=== PATIENT | male | born 1935 | race Caucasian/White ===

== ENCOUNTER 2017-06-01 14:45 | Emergency (ER) | payer MEDICARE, BC ==
--- NOTE | 2017-06-01 15:18 | ED Physician Documentation ---
PD HPI LOWER EXT INJURY - Stated complaint Stated Complaint: RT FOOT SWOLLEN - Chief complaint Chief Complaint: Ext Problem - History obtained from History obtained from: Patient, Family (spouse) - History of Present Illness PD HPI LOW EXT INJURY LOCATION: Right, Foot Type of injury: Fall Where injury occurred: Home Timing - onset: How many days ago (3) Worsened by: Other (weight bearing) Associated symptoms: Swelling - Additional information Additional information: The patient is a pleasant 81-year-old male who presents with pain and swelling of his right foot. 3 days ago he hooked his toes on carpeting causing his foot to hyperextend and then he fell. He has been ambulatory since the incident occurred, but presents with pain and swelling that is worse with weightbearing. He reports history of frequent falling under similar circumstances. His states that he walks with a shuffling gait, and slaps his feet on the floor when walking. He has a history of atrial fibrillation, and was taken off of warfarin because of frequent falling. Review of Systems Constitutional: denies: Fever Nose: denies: Congestion Throat: denies: Sore throat Cardiac: denies: Chest pain / pressure Respiratory: denies: Dyspnea, Cough GI: denies: Abdominal Pain, Nausea, Vomiting : denies: Dysuria Skin: denies: Rash Musculoskeletal: reports: Extremity pain (right foot). denies: Neck pain, Back pain Neurologic: denies: Focal weakness, Numbness, Headache, Head injury, LOC PD PAST MEDICAL HISTORY - Past Medical History Cardiovascular: Atrial fibrillation - Present Medications Home Medications: Ambulatory Orders Medication Instructions Recorded Confirmed ALPRAZolam [Alprazolam] 0.5 mg PO DAILY 06/01/17 06/01/17 Cimetidine 400 mg PO DAILY 06/01/17 06/01/17 Colchicine [Colcrys] 0.06 mg PO BID 06/01/17 06/01/17 Digoxin 0.125 mg PO DAILY 06/01/17 06/01/17 Metoprolol Tartrate 25 mg PO BID 06/01/17 06/01/17 Triamterene/Hydrochlorothiazid 1 tab PO DAILY 06/01/17 06/01/17 [Triamterene-Hctz 37.5-25 mg Cp] - Allergies Allergies/Adverse Reactions: Allergies Allergy/AdvReac Type Severity Reaction Status Date / Time No Known Drug Allergies Allergy Verified 06/01/17 15:41 PD ED PE NORMAL - Vitals Vital signs reviewed: Yes (hypertensive) - General General: Alert and oriented X 3, Well developed/nourished - HEENT HEENT: Atraumatic, EOMI - Neck Neck: No bony TTP - Cardiac Cardiac: RRR, No murmur - Respiratory Respiratory: No respiratory distress, Clear bilaterally - Abdomen Abdomen: Soft, Non tender - Back Back: No CVA TTP - Derm Derm: No rash - Extremities Extremities: No calf tenderness / cord, Other (Swelling right foot, with tenderness to palpation medial midfoot. Distal neurovascular is intact.) - Neuro Neuro: Alert and oriented X 3, No motor deficit, Other (Slight tremor.) Results - Vitals Vitals: Oxygen O2 Source Room air - Rads (name of study) Right foot Radiology: Prelim report reviewed, EMP read contemporaneously, See rad report ( No fracture or subluxation.) PD MEDICAL DECISION MAKING - ED course Complexity details: reviewed results, re-evaluated patient, considered differential, d/w patient, d/w family ED course: The patient's presentation is significant for contusion/sprain of right foot caused by hyperextension injury with subsequent falling. There is no evidence of fracture or dislocation on x-ray examination. I discussed with him and his the results of the imaging study, symptomatic treatment and outpatient follow-up, as well as potentially worrisome signs or symptoms that should prompt reevaluation in the emergency department. I discussed with them the possibility of early parkinsonism, given the patient's shuffling gait, and I recommended he use a cane to help steady himself when ambulating. Departure - Departure Disposition: 01 Home, Self Care Clinical Impression: Contusion of right foot Qualifiers: Encounter type: initial encounter Qualified Code(s): S90.31XA - Contusion of right foot, initial encounter Condition: Stable Instructions: ED Contusion Foot Follow-Up: Michelle Hilliard MD [Primary Care Provider] - Comments: Keep your right foot elevated as much of the time as possible. You can use Tylenol if needed for discomfort. Follow up with your primary physician within 2 weeks. Call to schedule appointment. Return to the emergency department if you develop increasing swelling, increasing pain, or otherwise worsening symptoms. Discharge Date/Time: 06/01/17 16:45
--- NOTE | 2017-06-01 15:46 | XRAY Report ---
EXAM: RIGHT FOOT RADIOGRAPHY EXAM DATE: 06/01/2017 03:28 PM. CLINICAL HISTORY: Right foot pain and swelling after falling. COMPARISON: None. TECHNIQUE: 3 views. FINDINGS: Bones: No acute fracture or bony destruction. There is sclerosis of the fifth proximal phalanx. Joints: Joint space and alignment appear satisfactory. Soft Tissues: Normal. No soft tissue swelling. IMPRESSION: No fracture or subluxation. [facility] Referring Provider Line: [phone] SITE ID: [id number]
[2017-06-01 16:46] VITALS: BP 146/90
== END 2017-06-01 16:45 | disposition home or self-care (01) ==
LOC: ED 14:45
DX: S90.31XA Contusion of right foot, initial encounter (principal); W18.30XA Fall on same level, unspecified, initial encounter; Z91.81 History of falling; Y92.009 Unspecified place in unspecified non-institutional (private) residence as the place of occurrence of the external cause
CPT/HCPCS: 99283

== ENCOUNTER 2017-07-03 14:12 | Emergency (ER) | payer MEDICARE, BC ==
--- NOTE | 2017-07-03 15:20 | ED Physician Documentation ---
PD HPI LOWER EXT INJURY - Stated complaint Stated Complaint: LEG SWELLING - Chief complaint Chief Complaint: Ext Problem - History obtained from History obtained from: Patient - History of Present Illness PD HPI LOW EXT INJURY LOCATION: Right, Ankle Type of injury: Fall, Twist Timing - onset: How many months ago (he fell a month ago and had swelling and bruising of both ankle,s more to the left. These have improved. Now with several days to a week of right ankle redness, swelling, and pain.) Timing - details: Gradual onset, Still present Worsened by: Moving, Palpating Associated symptoms: Swelling. No: Weakness, Numbness Similar symptoms before: Has not had sx before Recently seen: Clinic (Rx with Colchicine by PMD but not improving the past couple days.) Review of Systems Constitutional: denies: Fever, Chills Cardiac: denies: Chest pain / pressure, Palpitations Respiratory: denies: Dyspnea, Cough GI: denies: Nausea, Vomiting Skin: denies: Rash, Lesions Neurologic: denies: Focal weakness, Numbness PD PAST MEDICAL HISTORY - Past Medical History Past Medical History: Yes Cardiovascular: Atrial fibrillation GI: GERD Musculoskeletal: Gout - Past Surgical History Past Surgical History: No - Present Medications Home Medications: Ambulatory Orders Medication Instructions Recorded Confirmed ALPRAZolam [Alprazolam] 0.5 mg PO DAILY 06/01/17 06/01/17 Cimetidine 400 mg PO DAILY 06/01/17 06/01/17 Colchicine [Colcrys] 0.06 mg PO BID 06/01/17 06/01/17 Digoxin 0.125 mg PO DAILY 06/01/17 06/01/17 Metoprolol Tartrate 25 mg PO BID 06/01/17 06/01/17 Triamterene/Hydrochlorothiazid 1 tab PO DAILY 06/01/17 06/01/17 [Triamterene-Hctz 37.5-25 mg Cp] Dexamethasone [Decadron] 4 mg PO DAILY #5 tablet 07/03/17 HYDROcod/ACETAM 5/325 [[place] 5/325] 1 tab PO Q6H PRN #15 tablet 07/03/17 Naproxen [Naprosyn] 500 mg PO BID PRN #20 tablet 07/03/17 - Allergies Allergies/Adverse Reactions: Allergies Allergy/AdvReac Type Severity Reaction Status Date / Time No Known Drug Allergies Allergy Verified 07/03/17 14:21 - Social History Does the pt smoke?: No Smoking Status: Never smoker Does the pt drink ETOH?: No Does the pt have substance abuse?: No - Immunizations Immunizations are current?: Yes - POLST Patient has POLST: No PD ED PE NORMAL - Vitals Vital signs reviewed: Yes - General General: Alert and oriented X 3, Well developed/nourished - Neck Neck: Supple, no meningeal sign, No adenopathy - Cardiac Cardiac: RRR, No murmur - Respiratory Respiratory: Clear bilaterally - Abdomen Abdomen: Soft, Non tender - Back Back: No CVA TTP - Derm Derm: Normal color, Warm and dry - Extremities Extremities: No deformity, Other (right ankle with swelling and effusion. Some redness and tender anteroloateral. ) - Neuro Neuro: Alert and oriented X 3, No motor deficit, No sensory deficit Results - Vitals Vitals: Oxygen O2 Source Room air - Labs Labs: Microbiology 07/03/17 16:42 Body Fluid Culture - Preliminary Synovial Fluid CULTURE IN PROGRESS. RESULTS TO FOLLOW. Laboratory Tests 07/03/17 07/03/17 07/03/17 16:42 16:42 16:51 WBC 11.8 H RBC 5.18 Hgb 14.4 Hct 43.7 MCV 84.3 MCH 27.7 MCHC 32.9 RDW 14.4 Plt Count 221 MPV 8.0 Neut # 7.3 H Lymph # 2.3 [place] # 1.7 H Eos # 0.3 Baso # 0.1 Absolute Nucleated RBC 0.01 Band Neuts % (Manual) Not Reportable Abnorm Lymph % (Manual) Not Reportable Nucleated RBC % 0.1 Neutrophils # (Manual) Not Reportable Lymphocytes # (Manual) Not Reportable Monocytes # (Manual) Not Reportable Eosinophils # (Manual) Not Reportable Basophils # (Manual) Not Reportable Differential Comment MANUAL=AUTO DIFF Manual Slide Review Indicated Platelet Estimate NORMAL (130-450,000) Platelet Morphology NORMAL APPEARANCE RBC Morph Micro Appear NORMAL APPEARANCE ESR Sodium Potassium Chloride Carbon Dioxide Anion Gap BUN Creatinine Estimated GFR (MDRD) Glucose Uric Acid Calcium Total Bilirubin AST ALT Alkaline Phosphatase Total Protein Albumin Globulin Albumin/Globulin Ratio Lipase Fluid Source SYNOVIAL Fluid Color BLOODY Fluid Clarity CLOUDY Fluid WBC Fluid RBC Fluid Neutrophils % 91.0 Fluid Lymphocytes % 9.0 Fld Mesothelial Cell % Not Reportable Fluid Crystals NONE SEEN 07/03/17 07/03/17 16:51 16:51 WBC RBC Hgb Hct MCV MCH MCHC RDW Plt Count MPV Neut # Lymph # [place] # Eos # Baso # Absolute Nucleated RBC Band Neuts % (Manual) Abnorm Lymph % (Manual) Nucleated RBC % Neutrophils # (Manual) Lymphocytes # (Manual) Monocytes # (Manual) Eosinophils # (Manual) Basophils # (Manual) Differential Comment Manual Slide Review Platelet Estimate Platelet Morphology RBC Morph Micro Appear ESR 11 Sodium 134 L Potassium 3.6 Chloride 96 L Carbon Dioxide 24 Anion Gap 14.0 H BUN 28 H Creatinine 1.4 H Estimated GFR (MDRD) 49 L Glucose 106 H Uric Acid 8.0 H Calcium 9.4 Total Bilirubin 0.8 AST 24 ALT 26 Alkaline Phosphatase 72 Total Protein 8.1 Albumin 4.1 Globulin 4.0 Albumin/Globulin Ratio 1.0 Lipase 23 Fluid Source Fluid Color Fluid Clarity Fluid WBC Fluid RBC Fluid Neutrophils % Fluid Lymphocytes % Fld Mesothelial Cell % Fluid Crystals Procedures - Arthrocentesis Joint: Ankle, Right Preparation: Consent obtained (verbal), Sterile prep and drape Anesthesia: Lidocaine 1% Fluid: Bloody, Sent for cell count, Cloudy, Sent for crystals, Sent for culture , Fluid obtained - cc (3) PD MEDICAL DECISION MAKING - ED course Complexity details: reviewed results, considered differential (consider DVT, gout, reactive arthritis, sprain. ), d/w patient Departure - Departure Disposition: 01 Home, Self Care Clinical Impression: Acute ankle pain Qualifiers: Laterality: right Qualified Code(s): M25.571 - Pain in right ankle and joints of right foot Clinical Impression: (Ruled Out): Deep vein thrombosis Condition: Stable Record reviewed to determine appropriate education?: Yes Instructions: ED Sprain Ankle Follow-Up: Michelle Hilliard MD [Primary Care Provider] - Prescriptions: Dexamethasone [Decadron] 4 mg PO DAILY #5 tablet HYDROcod/ACETAM 5/325 [[place] 5/325] 1 tab PO Q6H PRN #15 tablet PRN Reason: Pain Naproxen [Naprosyn] 500 mg PO BID PRN #20 tablet PRN Reason: Pain Comments: The ultrasound shows good blood flow back without any signs of clot. There were no crystals seen on the initial fluid exam from the ankle so it does not appear to be gout. Presume some ankle arthritis or ligament injuries. Use Decadron daily for 5 more days and naproxen twice daily for the next 5-7 days. Add Tylenol or hydrocodone if needed for pain. Use the [place] wrap and ankle brace when up and around for the next week. Call your local [facility] family doctor for follow-up appointment for about 4-5 days from now. Return sooner if worsening. We did do a culture result of the fluid from the ankle and that will result in a few days though it does not appear like an infection right now. Discharge Date/Time: 07/03/17 18:49
[2017-07-03] MEDS ORDERED: NAPROXEN 250 MG TABLET PO STA (15:47)
[2017-07-03] MEDS ORDERED: traMADol 50 MG TABLET PO STA (15:47)
--- NOTE | 2017-07-03 16:37 | XRAY Report ---
EXAM: RIGHT FOOT RADIOGRAPHY EXAM DATE: 07/03/2017 03:52 PM. CLINICAL HISTORY: Right lateral ankle/foot swelling and pain after fall and injury. COMPARISON: 06/01/2017. TECHNIQUE: 3 views. FINDINGS: Bones: Normal. No fractures or bone lesions. Joints: Normal. No subluxations. Soft Tissues: Normal. No significant soft tissue swelling. IMPRESSION: No fracture or malalignment. [facility] Referring Provider Line: [phone] SITE ID: [id number]
--- NOTE | 2017-07-03 16:53 | Ultrasound Report ---
EXAM: RIGHT LOWER EXTREMITY VENOUS ULTRASOUND EXAM DATE: 07/03/2017 04:30 PM. CLINICAL HISTORY: Right ankle/lower leg swelling after recent injury. COMPARISON: Foot films today. TECHNIQUE: Real-time sonographic vascular imaging was performed by the re etcher through the lower extremity utilizing both color-flow and Doppler spectral analysis. Multiple accounting representative static abraham ges were saved for review. FINDINGS: Common Femoral Vein (CFV): Normal. CFV-GSV Junction: Normal. Profunda Femoral Vein (PFV): Normal. Femoral Vein (FV) Prox: Normal. Femoral Vein (FV) Mid: Normal. Femoral Vein (FV) Dist: Normal. Popliteal Vein: Normal. Posterior Tibial Veins: Normal. Peroneal Veins: Normal. Contralateral Side CFV: Normal. Other: None. IMPRESSION: No evidence for deep venous thrombosis. [facility] Referring Provider Line: [phone] SITE ID: [id number]
--- NOTE | 2017-07-03 16:53 | Ultrasound Preliminary Report ---
Exam: US DUPLEX EXT VEINS RIGHT IMPRESSION: No evidence for deep venous thrombosis. [facility] SITE ID: [id number]
[2017-07-03 16:57] LABS: BASOPHILS # (AUTO) 0.1 10^3/uL (0.0-0.1); BASOPHILS % (AUTO) 1.2 %; EOSINOPHILS # (AUTO) 0.3 10^3/uL (0.0-0.7); EOSINOPHILS % (AUTO) 2.9 %; HGB - HEMOGLOBIN 14.4 g/dL (14.0-18.0); LYMPHOCYTES # (AUTO) 2.3 10^3/uL (1.5-3.5); LYMPHOCYTES % (AUTO) 19.8 %; MEAN CORPUSCULAR HEMOGLOBIN 27.7 pg (27.0-31.0); MEAN CORPUSCULAR HGB CONC 32.9 g/dL (32.0-36.0); MEAN CORPUSCULAR VOLUME 84.3 fL (80.0-94.0); MONOCYTES # (AUTO) 1.7 10^3/uL (0.0-1.0); MONOCYTES % (AUTO) 14.6 %; NEUTROPHILS # (AUTO) 7.3 10^3/uL (1.5-6.6); NEUTROPHILS % (AUTO) 61.5 %; PLT - PLATELET COUNT 221 10^3/uL (130-450); RED BLOOD COUNT 5.18 10^6/uL (4.70-6.10); RED CELL DISTRIBUTION WIDTH 14.4 % (12.0-15.0); WHITE BLOOD COUNT 11.8 x10^3/uL (4.8-10.8)
[2017-07-03 17:11] LABS: ALBUMIN 4.1 g/dL (3.2-5.5); BILIRUBIN,TOTAL 0.8 mg/dL (0.2-1.0); CALCIUM 9.4 mg/dL (8.5-10.3); CREATININE 1.4 mg/dL (0.6-1.2); TOTAL PROTEIN 8.1 g/dL (6.7-8.2)
[2017-07-03 17:43] LABS: DIFFERENTIAL COMMENT MANUAL=AUTO DIFF; PLATELET ESTIMATE, MANUAL NORMAL (130-450,000) (NORMAL); PLATELET MORPHOLOGY NORMAL APPEARANCE (NORMAL); RBC MORPHOLOGY (MULTIPLE) NORMAL APPEARANCE (NORMAL)
[2017-07-03 17:48] LABS: BF COLOR BLOODY
[2017-07-03 17:54] LABS: BF SOURCE SYNOVIAL
[2017-07-03 18:43] VITALS: BP 115/85
== END 2017-07-03 18:49 | disposition home or self-care (01) ==
LOC: ED 14:12
DX: M25.571 Pain in right ankle and joints of right foot (principal); M25.471 Effusion, right ankle; Z91.81 History of falling; Z87.39 Personal history of other diseases of the musculoskeletal system and connective tissue
CPT/HCPCS: 20605; 36415; 73630; 80053; 83690; 84550; 85025; 85651; 87070; 87205; 89051; 89060; 93971; 99283; A9270

== ENCOUNTER 2017-08-15 21:18 | Outpatient (CLI) | payer MEDICARE, BC | END 2017-08-15 21:19 | disposition critical access hospital (66) | LOC: EMS 21:18 | PROVIDERS: ATTEND Surgery | DX: R47.89 Other speech disturbances (principal); R11.10 Vomiting, unspecified; R51 Headache | CPT/HCPCS: A0425; A0427 ==

== ENCOUNTER 2017-08-15 21:30 | Inpatient (IN) | payer MEDICARE, BC ==
[2017-08-15 21:45] LABS: BASOPHILS # (AUTO) 0.2 10^3/uL (0.0-0.1); BASOPHILS % (AUTO) 1.3 %; EOSINOPHILS # (AUTO) 0.4 10^3/uL (0.0-0.7); EOSINOPHILS % (AUTO) 3.8 %; HGB - HEMOGLOBIN 13.8 g/dL (14.0-18.0); LYMPHOCYTES # (AUTO) 4.3 10^3/uL (1.5-3.5); LYMPHOCYTES % (AUTO) 36.3 %; MEAN CORPUSCULAR HEMOGLOBIN 27.9 pg (27.0-31.0); MEAN CORPUSCULAR HGB CONC 33.5 g/dL (32.0-36.0); MEAN CORPUSCULAR VOLUME 83.2 fL (80.0-94.0); MEAN PLATELET VOLUME 8.3 fL (7.4-11.4); MONOCYTES # (AUTO) 1.5 10^3/uL (0.0-1.0); MONOCYTES % (AUTO) 12.9 %; NEUTROPHILS # (AUTO) 5.4 10^3/uL (1.5-6.6); NEUTROPHILS % (AUTO) 45.7 %; PLT - PLATELET COUNT 202 10^3/uL (130-450); RED BLOOD COUNT 4.94 10^6/uL (4.70-6.10); RED CELL DISTRIBUTION WIDTH 14.7 % (12.0-15.0); WHITE BLOOD COUNT 11.9 x10^3/uL (4.8-10.8)
[2017-08-15 21:56] LABS: ALBUMIN 3.9 g/dL (3.2-5.5); BILIRUBIN,TOTAL 0.7 mg/dL (0.2-1.0); CALCIUM 9.1 mg/dL (8.5-10.3); CREATININE 1.5 mg/dL (0.6-1.2); TOTAL PROTEIN 7.7 g/dL (6.7-8.2)
[2017-08-15] MEDS ORDERED: ONDANSETRON 4 MG/2 ML VIAL IVP STA ×2 (21:59→23:00)
[2017-08-15] MEDS ORDERED: ONDANSETRON 4 MG/2 ML VIAL ONE (22:08)
--- NOTE | 2017-08-15 22:08 | CT Report ---
EXAM: CT HEAD EXAM DATE: 08/15/2017 09:53 PM. CLINICAL HISTORY: Stroke. COMPARISON: None. TECHNIQUE: Multiaxial CT images were obtained from the foramen magnum to the vertex. Reformats: Coron al. IV contrast: None. In accordance with CT protocol optimization, one or more of the following dose reduction techniques w ere utilized for this exam: automated exposure control, adjustment of mA and/or KV based on patient s ize, or use of iterative reconstructive technique. FINDINGS: Parenchyma: No intraparenchymal hemorrhage. No evidence of mass, midline shift, or CT findings of inf arction. Burkett-white differentiation is distinct. Extraaxial Spaces: There is mild generalized volume loss. No subdural or epidural collections identif ied. There is relative hyperdensity of the right vertebral artery. Ventricles: Normal in size and position. Sinuses and Orbits: Imaged paranasal sinuses, orbits, and mastoids show no significant abnormality. Bones: No evidence of fracture or calvarial defect. Other: None. IMPRESSION: 1. There is no evidence of hemorrhage or mass effect. No clearly acute loss of burkett-white matter diff erentiation. 2. There is relative hyperdensity of the right upper vertebral artery (for example image 5 series 9). Differential considerations include thrombus, calcification, or artifact secondary to beam hardening . CTA could be used for further evaluation as indicated. [facility] The above findings were discussed with Dr. Gonzalez by Dr. Jacoby Gilbert at 22:06 hrs on 08/15/17. Referring Provider Line: [phone] SITE ID: [id number]
--- NOTE | 2017-08-15 22:18 | XRAY Preliminary Report ---
Exam: XR CHEST 1 VIEW X-RAY IMPRESSION: 1. Small lung volumes with borderline heart size and pulmonary vascularity. [facility] SITE ID: [id number]
--- NOTE | 2017-08-15 22:18 | XRAY Report ---
EXAM: CHEST RADIOGRAPHY EXAM DATE: 08/15/2017 10:01 PM. CLINICAL HISTORY: Fever, hx of lung failure. COMPARISON: None. TECHNIQUE: 1 view. FINDINGS: Lungs/Pleura: No alveolar consolidation or pleural effusion seen. Pulmonary vascularity is upper norm al. No pneumothorax. Small lung volumes. Mediastinum: Borderline cardiomegaly. Tortuous aorta. Other: Osteopenia. 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 IMPRESSION: 1. Small lung volumes with borderline heart size and pulmonary vascularity. [facility] Referring Provider Line: [phone] SITE ID: [id number]
[2017-08-15 22:22] LABS: INR 1.1 (0.8-1.2); PT - PROTHROMBIN TIME 12.4 secs (9.9-12.6)
[2017-08-15] MEDS ORDERED: MECLIZINE 12.5 MG TABLET PO STA (22:30)
--- NOTE | 2017-08-15 22:50 | ED Physician Documentation ---
PD HPI FOCAL NEURO - Stated complaint Stated Complaint: STROKE - Chief complaint Chief Complaint: Neuro - History obtained from History obtained from: Patient, Family, EMS - History of Present Illness Timing - onset: How many minutes ago (45) Timing - details: Abrupt onset Severity of deficit: Moderate Weakness: Face, Arm, Right Associated symptoms: Headache, Nausea / vomiting Contributing factors: positive: Atrial fibrillation Baseline status: positive: Mildly confused Similar symptoms before: Has not had sx before Recently seen: Not recently seen - Additional information Additional information: Patient is a 81 year old male with a history of Afib, who stopped taking his coumadin about 2 months ago who was brought to the emergency department for potential stroke. According to patient, family and ems, about 45min prior to arrival patient was sitting in his chair and started speaking gibberish. At that time patient had some facial droop and deficit. ems was called. EMS reports that the patient's symptoms started to improve enroute. Upon initial evaluation patient had minimal facial droop and some dystharthria. Patient did complain of vertigo, nausea and vomiting. Review of Systems Constitutional: denies: Fever Eyes: reports: Reviewed and negative Ears: reports: Reviewed and negative Nose: reports: Reviewed and negative Throat: reports: Reviewed and negative Cardiac: denies: Chest pain / pressure, Palpitations Respiratory: denies: Cough GI: reports: Nausea, Vomiting : reports: Reviewed and negative Skin: reports: Other (diaphoresis) Neurologic: reports: Focal weakness, Numbness, Difficulty speaking Immunocompromised: denies: Immunocompromised PD PAST MEDICAL HISTORY - Past Medical History Cardiovascular: Atrial fibrillation GI: GERD Musculoskeletal: Gout - Past Surgical History Past Surgical History: No - Present Medications Home Medications: Ambulatory Orders Medication Instructions Recorded Confirmed Cimetidine 400 mg PO DAILY 06/01/17 06/01/17 Colchicine [Colcrys] 0.06 mg PO BID 06/01/17 06/01/17 Digoxin 0.125 mg PO DAILY 06/01/17 06/01/17 Metoprolol Tartrate 25 mg PO BID 06/01/17 06/01/17 Triamterene/Hydrochlorothiazid 1 tab PO DAILY 06/01/17 06/01/17 [Triamterene-Hctz 37.5-25 mg Cp] Naproxen [Naprosyn] 500 mg PO BID PRN #20 tablet 02/20/18 ALPRAZolam [Alprazolam] 0.5 mg PO 08/15/17 - Allergies Allergies/Adverse Reactions: Allergies Allergy/AdvReac Type Severity Reaction Status Date / Time No Known Drug Allergies Allergy Verified 07/03/17 14:21 - Social History Does the pt smoke?: No Smoking Status: Never smoker Does the pt drink ETOH?: No Does the pt have substance abuse?: No - Immunizations Immunizations are current?: Yes - POLST Patient has POLST: No PD ED PE NORMAL - Vitals Vital signs reviewed: Yes - HEENT HEENT: Atraumatic PD ED PE EXPANDED - Eyes Eyes: Other (gaze palsy) - Neuro Neuro: Confused, Weakness, Abnormal sensation, Right face, CN deficit, Dysarthria. No: Nystagmus NIHSS - Time Time: 21:55 - Level of Consciousness Level of consciousness: (1) Not alert, but arousable by minor stimulation to obey, or answer LOC Questions: (0) Answers both Q's correct LOC Commands: (0) Performs both correctly - Gaze Best Gaze: (0) Normal - Visual Visual: (0) No loss - Facial Palsy Facial Palsy: (1) Minor paralysis - Motor Arms (both separate) Motor Arm (right): (0) No drift Motor Arm (left): (0) No drift - Motor Legs (both separate) Motor Leg (right): (0) No drift Motor Leg (left): (0) No drift - Limb Ataxia Limb Ataxia: (0) Absent - Sensory Sensory: (0) Normal - Best Language Best Language: (0) No aphasia - Dysarthria Dysarthria: (1) [id number] dysarthria - Extinction and Inattention (formally neg Extinction and inattention: (0) No abnormality - Total Score/Results Total Score/Result: 3 Results - Vitals Vitals: Vital Signs - 24 hr 08/15/17 08/15/17 08/15/17 21:30 21:34 21:37 Temperature 36.0 C L 36.0 C L Heart Rate 73 95 Respiratory 16 16 Rate Blood Pressure 175/82 H 181/107 H O2 Saturation 97 98 08/15/17 22:24 Temperature Heart Rate 75 Respiratory 16 Rate Blood Pressure 157/92 H O2 Saturation 96 Oxygen O2 Source Room air - EKG (time done) 2207 Rate: Rate (enter#) (72) Rhythm: Atrial fibrillation [place]: Normal Intervals: LBBB Ischemia: Normal ST segments Compare to prior EKG: Old EKG unavailable 2337 Rate: Rate (enter#) (132) Rhythm: Atrial fibrillation Intervals: LBBB Ischemia: No: ST elevation c/w ischemia Compare to prior EKG: Changed from prior EKG - Labs Labs: Laboratory Tests 08/15/17 08/15/17 08/15/17 21:35 21:35 21:35 WBC 11.9 H RBC 4.94 Hgb 13.8 L Hct 41.2 L MCV 83.2 MCH 27.9 MCHC 33.5 RDW 14.7 Plt Count 202 MPV 8.3 Neut # 5.4 Lymph # 4.3 H Ness # 1.5 H Eos # 0.4 Baso # 0.2 H Absolute Nucleated RBC 0.01 Nucleated RBC % 0.1 PT INR APTT Sodium 137 Potassium 3.3 L Chloride 105 Carbon Dioxide 24 Anion Gap 8.0 BUN 28 H Creatinine 1.5 H Estimated GFR (MDRD) 45 L Glucose 136 H Lactic Acid Calcium 9.1 Total Bilirubin 0.7 AST 31 ALT 26 Alkaline Phosphatase 70 Troponin I < 0.04 B-Natriuretic Peptide Total Protein 7.7 Albumin 3.9 Globulin 3.8 Albumin/Globulin Ratio 1.0 Lipase 33 TSH 08/15/17 08/15/17 08/15/17 21:35 21:35 22:09 WBC RBC Hgb Hct MCV MCH MCHC RDW Plt Count MPV Neut # Lymph # Ness # Eos # Baso # Absolute Nucleated RBC Nucleated RBC % PT 12.4 INR 1.1 APTT 26.2 Sodium Potassium Chloride Carbon Dioxide Anion Gap BUN Creatinine Estimated GFR (MDRD) Glucose Lactic Acid Calcium Total Bilirubin AST ALT Alkaline Phosphatase Troponin I B-Natriuretic Peptide 235 H Total Protein Albumin Globulin Albumin/Globulin Ratio Lipase TSH 3.15 08/15/17 22:09 WBC RBC Hgb Hct MCV MCH MCHC RDW Plt Count MPV Neut # Lymph # Ness # Eos # Baso # Absolute Nucleated RBC Nucleated RBC % PT INR APTT Sodium Potassium Chloride Carbon Dioxide Anion Gap BUN Creatinine Estimated GFR (MDRD) Glucose Lactic Acid 2.0 Calcium Total Bilirubin AST ALT Alkaline Phosphatase Troponin I B-Natriuretic Peptide Total Protein Albumin Globulin Albumin/Globulin Ratio Lipase TSH - Rads (name of study) ct head Radiology: Discussed with rads (possible hyperdensity of vertebral artery) chest x-ray Radiology: Final report received, Discussed with rads (right mainstem et tube) Procedures - Intubation Provider: Emergency physician Blade: Faviola Tube: Size-enter number (7.5), Cuffed Route: Oral Confirmation: Direct visualization, Bilateral breath sounds, No abdominal breath sound, End tidal CO2, Pulse ox, Chest xray Complications: No compications, Right mainstem PD MEDICAL DECISION MAKING - ED course Complexity details: reviewed old records, reviewed results, re-evaluated patient , considered differential, d/w patient, d/w family, d/w excellence consultant ED course: Patient was seen and examined immediately at bedside. iv access was gained, labs were drawn and patient went to CT within the first 8 minutes of arrival. when patient returned ekg was performed and showed a fib. CT results were discussed with radiologist who stated there was no acute bleed, possibly a hyperdensity of the verterbral artery. [employer] was consulted. patient was evaluated and the discussion was had with the family and no tpa was to be given due to the low NiHSS and the family's desire not to take blood thinners. Case was discussed with hospitalist who agreed to admission. while awaiting transfer to the floor, Patient became hypoxic (likely secondary to aspiration). I was called into the room and the patient became pulseless. CPR was started. Pulses were regained and patient was bradycardic and treated with one dose of atropine. Patient's blood pressure and heart rate responded and patient was intubated. After intubation patient was oxygenating well. patient was treated with fentanyl and propofol. Patient was admitted to to the icu in critical condition. - Critical Care Time(min): 30 Time Includes: Direct patient care, Review records Data interpretation: Pulse ox, CXR, Prior EKG, Cardiac output Departure - Departure Disposition: 66 [facility] DC/Xfer Clinical Impression: Cerebrovascular accident (CVA) Condition: Stable Discharge Date/Time: 08/16/17 00:50
[2017-08-15] MEDS ORDERED: diazePAM INJ 5 MG/ML SYRINGE IVP STA (23:00)
[2017-08-15] MEDS ORDERED: MORPHINE 10 MG/ML VIAL IVP STA (23:00)
[2017-08-15] MEDS ORDERED: ATROPINE ABBOJECT 1 MG/10 ML SYRINGE IVP ONE (23:00)
[2017-08-15] MEDS ORDERED: NAPROXEN 250 MG TABLET PO PRN (23:10)
[2017-08-15] MEDS ORDERED: ONDANSETRON 4 MG/2 ML VIAL IVP PRN (23:13)
[2017-08-15] MEDS ORDERED: SODIUM CHLORIDE FLUSH 0.9% 10 ML SYRINGE IVP PRN (23:13)
[2017-08-15] MEDS ORDERED: oxyCODONE 5 MG TABLET PO PRN ×2 (23:13)
[2017-08-15] MEDS ORDERED: ACETAMINOPHEN 325 MG TABLET PO PRN (23:13)
[2017-08-15] MEDS ORDERED: PROCHLORPERAZINE 10 MG/2 ML VIAL IVP PRN (23:13)
[2017-08-15] MEDS ORDERED: PROPOFOL 1000 MG/100 ML 100 ML IV STA (23:34)
[2017-08-15] MEDS ORDERED: fentaNYL 100 MCG/2 ML VIAL IVP STA (23:34)
[2017-08-15] MEDS ORDERED: SODIUM CHLORIDE 0.9% 1,000 ML IV SCH (23:45)
[2017-08-15] MEDS ORDERED: MORPHINE 2 MG/ML SYRINGE IVP PRN (23:48)
[2017-08-15] MEDS ORDERED: ALBUTEROL NEB 2.5 MG/3 ML INH PRN (23:48)
--- NOTE | 2017-08-15 23:58 | HISTORY & PHYSICAL EXAMINATION ---
Chief Complaint - Chief Complaint Chief Complaint: Dysarthria and right sided weakness History of Present Illness - Admitted From Admitted From:: Emergency department - History Obtained From Records Reviewed: Yes History obtained from: Patient's Exam Limitations: Patient was unable to provide history secondary to being intubated and juno - History of Present Illness HPI Comment/Other: Patient is a 81-year-old gentleman with a past medical history significant for atrial fibrillation off Coumadin for the last few months, hyperlipidemia, CKD stage 3 hypertension, gout and dementia who presented to the emergency department with a chief complaint of dysarthria and right-sided weakness. When I saw the patient he was intubated and sedated therefore the history was obtained from the patient's . According to the patient's the patient was in his normal state of health until this morning. She states that throughout the day today he has been having intermittent vertigo. She states that he was complaining of feeling very dizzy and as though the room was spinning around him this afternoon but then appear to improve and vacuumed the floor. She states that he had another episode of vertigo later in the evening before dinner but that resolved. She states that later in the evening he took his blood pressure medications and prior to going to bed he began having severe symptoms. She states that symptoms were so bad he could not even stand up and then she states that he leaned his head back in the chair and she states that he began slurring his words and she noticed that he had weakness on the right side. She states that she went and called 911 when she got back to him he began vomiting and had several episodes of vomiting prior to the arrival of EMS. By the time EMS arrived they noted the patient did have some slight right sided facial droop and right sided weakness. They stated that he was not moving his right upper extremity. The patient's states that the patient had no recent fevers, chills, chest pain, shortness of air, orthopnea, PND, abdominal pain or constipation. On arrival to the emergency department the patient was afebrile and hypertensive but the remainder of his vital signs were within normal limits. The emergency room physician noted that the patient did have a slight right facial droop and continued to have dysarthria and initially was not using his right arm however when he was asked to use the right arm he did follow commands and appeared to have normal strength. The patient was sent for CT of his head which showed a relative hyperdensity in the right upper vertebral artery with a differential consideration of thrombus, calcification or artifact secondary to beam hardening. Tele neurology was activated and the patient was assessed by a neurologist from [facility]. He was found to have a NIH stroke scale score of 2. They determined he was not a candidate for TPA and recommended admission to the hospital for further imaging including echocardiogram, CT angiogram of the head and neck and MRI. While in the emergency room the patient continued to have nausea and prior to being admitted for possible stroke the patient had an episode of emesis and appears to have aspirated. The patient became hypoxic with oxygen saturation that dropped to as low as 30% and began to have bradycardia. The emergency room physician noted this on the monitor and immediately rushed to the patient' s room. When the emergency room physician arrived in the patient's room he found him to be cyanotic lying on his side. The emergency room physician immediately checked for a pulse which was absent and began chest compressions. The patient only received chest compressions for no more than 2 minutes. When on initial pulse check he was found to have a good pulse but was bradycardic. The patient was given atropine and heart rate improved. The patient required bagging to maintain a good oxygen saturation and eventually was intubated. Prior to intubation the patient was found to have stomach content in his oropharynx which had to be suctioned to clear the path for the endotracheal tube. The patient had a anoxic cardiac arrest but recovered rapidly and was admitted to the intensive care unit for acute respiratory failure with hypoxia and likely posterior stroke. History - Past Medical History Cardiovascular: reports: Hypertension, High cholesterol, Atrial fibrillation Respiratory: reports: None Neuro: reports: Dementia Endocrine/Autoimmune: reports: None GI: reports: GERD : reports: Renal insuffiency (CKD stage 3) Psych: reports: Anxiety Musculoskeletal: reports: Osteoarthritis, Gout MRSA Hx?: No - Family & Social History Family History: Mother: (No major medical problems), Father: , Brother: Hypertension Living arrangement: At home Living Situation: With spouse/s.o. Social History Notes: The patient lives in [place] with his . They have been for 52 years. He has dementia and his helps take care of him. She states that he is very stubborn and does not like doctors. He stopped his Coumadin a few months ago after discussion with his primary care physician as he did not like how it made him feel. The patient has 5 stepchildren and 2 biological children. He is retired from the [employer]. He quit smoking about 30 years ago prior to that he smoked for about 20 years and smoked up to 3 packs per day. He does not drink alcohol and denies any illicit drug use. - Substance History Use: Uses substance without health or social issues: NONE - POLST Patient has POLST: No POLST Status: DNR Meds/Allgy - Home Medications Home Medications: Ambulatory Orders Medication Instructions Recorded Confirmed Cimetidine 400 mg PO DAILY 06/01/17 06/01/17 Colchicine [Colcrys] 0.06 mg PO BID 06/01/17 06/01/17 Digoxin 0.125 mg PO DAILY 06/01/17 06/01/17 Metoprolol Tartrate 25 mg PO BID 06/01/17 06/01/17 Triamterene/Hydrochlorothiazid 1 tab PO DAILY 06/01/17 06/01/17 [Triamterene-Hctz 37.5-25 mg Cp] Naproxen [Naprosyn] 500 mg PO BID PRN #20 tablet 07/03/17 ALPRAZolam [Alprazolam] 0.5 mg PO 08/15/17 - Allergies Allergies/Adverse Reactions: Allergies Allergy/AdvReac Type Severity Reaction Status Date / Time No Known Drug Allergies Allergy Verified 07/03/17 14:21 Review of Systems - Other Findings Other Findings: Patient was intubated and sedated and therefore we were unable to obtain a comprehensive review of systems from the patient. I did attempt to obtain as much history and information from the patient's as possible. The history that was obtained is stated above in the HPI. Exam - Vital Signs Reviewed Vital Signs: Yes Vital Signs: Vital Signs x48h Temp Pulse Resp BP Pulse Ox 08/15/17 22:24 75 16 157/92 H 96 08/15/17 21:37 36.0 C L 08/15/17 21:34 95 16 181/107 H 98 08/15/17 21:30 36.0 C L 73 16 175/82 H 97 - Physical Exam General Appearance: positive: Other (Patient is intubated and sedated. Patient continues to thrash around despite the sedation he is moving his lower extremities and his torso.) Eyes Bilateral: positive: Normal inspection, PERRL, EOMI, No lid inflammation, Conjunctivae nml, No scleral icterus ENT: positive: ENT inspection nml, Pharynx nml, Dry mucous membranes. negative : Purulent nasal drainage, Pharyngeal erythema, Oral lesions Neck: positive: Nml inspection, Thyroid nml, No JVD, Trachea midline. negative : Thyromegaly, Lymphadenopathy (R), Lymphadenopathy (L), Stiff neck, Carotid bruit, Tracheal deviation Respiratory: positive: Chest non-tender, Rhonchi (Right lung), Other (Intubated) Cardiovascular: positive: No murmur, No gallop, Irregularly irregular, Tachycardia Peripheral Pulses: positive: 2+ Abdomen: positive: Non-tender, No organomegaly, Nml bowel sounds, No distention. negative: Guarding, Rebound, Hepatomegaly, Splenomegaly Back: positive: Nml inspection. negative: CVA tenderness (R), CVA tenderness (L ) Skin: positive: Color nml, No rash, Warm. negative: Cyanosis, Diaphoresis, Pallor, Skin rash Extremities: positive: Non-tender, Nml appearance, No pedal edema. negative: Joint swelling Neurologic/Psychiatric: positive: Other (Intubated and sedated but moving lower extremities and torso, breathing above the vent) Conclusion/Plan - Problem List (1) Acute respiratory failure with hypoxia Conclusion/Plan: The patient had acute respiratory failure with hypoxia leading to cardiac arrest requiring resuscitation with chest compressions and atropine. The patient also required intubation. It appears the patient's respiratory failure and subsequent cardiac arrest was secondary to aspiration. There was stomach contents found in the patient's airway prior to intubation and also content was suctioned out post intubation. The patient was likely unable to protect his airway secondary to his stroke and likely had the nausea and vomiting due to a posterior stroke. Plan: Patient will be continued on the ventilator and we will try to wean the patient down slowly The patient's chest x-ray does not show active pneumonia however given his aspiration patient will likely develop pneumonia over the course of the next 24 hours therefore the patient is being placed on IV antibiotics with Zosyn and Levaquin (2) Cardiac arrest due to respiratory disorder Conclusion/Plan: The patient did have cardiac arrest after episode of aspiration and respiratory failure with hypoxia. The patient's oxygen saturation was down in the 30s and the patient was cyanotic. When found the patient had no pulse and chest compressions were started. Patient underwent chest compressions for no more than 2 minutes and he had return of spontaneous circulation however was bradycardic and required atropine. The patient has now been stabilized after intubation and sedation. The patient likely had aspiration secondary to stroke The patient's made it clear that she wants him to be a DO NOT RESUSCITATE status and would not want him to have any further chest compressions but does want him to continue to be treated if we see opportunity for reversibility of his condition. (3) Aspiration into respiratory tract Conclusion/Plan: The patient appears to have aspirated as stated above. This led to cardiac arrest and acute respiratory failure with hypoxia and the patient is now intubated. The patient does not have any evidence of pneumonia on his chest x- ray however given that this patient just aspirated it is likely he will not develop evidence of aspiration or of pneumonia for the next 24 hours. At this time given this patient's respiratory failure the patient will be treated for aspiration pneumonia with Zosyn and Levaquin. We will continue to monitor him with daily x-rays. Qualifiers: Encounter type: initial encounter Qualified Code(s): T17.908A - Unspecified foreign body in respiratory tract, part unspecified causing other injury, initial encounter (4) Cerebrovascular accident (CVA) Conclusion/Plan: The patient appears to have likely had a posterior stroke. Given his presenting symptoms of vertigo, nausea, vomiting and slight right-sided weakness. The patient's CT scan of his head did show a relative hyperdensity in the right upper vertebral artery which could be a thrombus and causing a posterior stroke. Plan: Given the patient's acute decline and aspiration with inability to protect his airway we will repeat the patient's CT head and also get a CT angiogram of his head and neck. Once the patient is stabilized and extubated we will also need to get an MRI. The patient will undergo an echo We will place the patient on aspirin and Lipitor Once patient is stabilized we will need to discuss restarting anticoagulation We will allow for permissive hypertension Patient will be monitored on telemetry and undergo neuro checks We will order a PT consultation once the patient is extubated and stabilized. Qualifiers: CVA mechanism: unspecified Qualified Code(s): I63.9 - Cerebral infarction, unspecified (5) Atrial fibrillation Conclusion/Plan: The patient was previously on Coumadin for his atrial fibrillation however stopped a few months ago when he stated that it made him feel badly and he was concerned about possibility of bleeding. The patient was adamant at that time that he would not take Coumadin anymore. The patient does have a chads 2 score of 2 and now that he has had a stroke his chads 2 score would be for. Currently the patient's rate is controlled Plan: We will get an echocardiogram If patient does recover and is stabilized then we will need to discuss starting the patient back on anticoagulation given his stroke and the fact that he is high risk for another stroke. Patient will be continued on metoprolol and digoxin for rate control. Patient will be on telemetry Qualifiers: Atrial fibrillation type: chronic Qualified Code(s): I48.2 - Chronic atrial fibrillation (6) Hypertension Conclusion/Plan: The patient has history of hypertension however given the likelihood of an acute stroke the patient will be allowed permissive hypertension and will hold his antihypertensive medications for now Qualifiers: Hypertension type: essential hypertension Qualified Code(s): I10 - Essential (primary) hypertension (7) Hypokalemia Conclusion/Plan: On presentation the patient does have hypokalemia with a potassium of 3.3. This is likely secondary to the patient's nausea and vomiting. Patient will be placed on electrolyte protocol and potassium will be replaced - Lab Results Lab results reviewed: Yes Fish Bones: 08/15/17 21:35 08/15/17 21:35 Other Lab Results: Laboratory Results WBC 11.9 x10^3/uL (4.8-10.8) H 08/15/17 21:35 RBC 4.94 10^6/uL (4.70-6.10) 08/15/17 21:35 Hgb 13.8 g/dL (14.0-18.0) L 08/15/17 21:35 Hct 41.2 % (42.0-52.0) L 08/15/17 21:35 MCV 83.2 fL (80.0-94.0) 08/15/17 21:35 MCH 27.9 pg (27.0-31.0) 08/15/17 21:35 MCHC 33.5 g/dL (32.0-36.0) 08/15/17 21:35 RDW 14.7 % (12.0-15.0) 08/15/17 21:35 Plt Count 202 10^3/uL (130-450) 08/15/17 21:35 MPV 8.3 fL (7.4-11.4) 08/15/17 21:35 Neut # 5.4 10^3/uL (1.5-6.6) 08/15/17 21:35 Lymph # 4.3 10^3/uL (1.5-3.5) H 08/15/17 21:35 [place] # 1.5 10^3/uL (0.0-1.0) H 08/15/17 21:35 Eos # 0.4 10^3/uL (0.0-0.7) 08/15/17 21:35 Baso # 0.2 10^3/uL (0.0-0.1) H 08/15/17 21:35 Absolute Nucleated RBC 0.01 x10^3/uL 08/15/17 21:35 Nucleated RBC % 0.1 /100WBC 08/15/17 21:35 PT 12.4 secs (9.9-12.6) 08/15/17 22:09 INR 1.1 (0.8-1.2) 08/15/17 22:09 APTT 26.2 secs (24.9-33.3) 08/15/17 22:09 Sodium 137 mmol/L (135-145) 08/15/17 21:35 Potassium 3.3 mmol/L (3.5-5.0) L 08/15/17 21:35 Chloride 105 mmol/L (101-111) 08/15/17 21:35 Carbon Dioxide 24 mmol/L (21-32) 08/15/17 21:35 Anion Gap 8.0 (6-13) 08/15/17 21:35 BUN 28 mg/dL (6-20) H 08/15/17 21:35 Creatinine 1.5 mg/dL (0.6-1.2) H 08/15/17 21:35 Estimated GFR (MDRD) 45 (>89) L 08/15/17 21:35 Glucose 136 mg/dL (70-100) H 08/15/17 21:35 Lactic Acid 2.0 mmol/L (0.5-2.2) 08/15/17 22:09 Calcium 9.1 mg/dL (8.5-10.3) 08/15/17 21:35 Total Bilirubin 0.7 mg/dL (0.2-1.0) 08/15/17 21:35 AST 31 IU/L (10-42) 08/15/17 21:35 ALT 26 IU/L (10-60) 08/15/17 21:35 Alkaline Phosphatase 70 IU/L (42-121) 08/15/17 21:35 Troponin I 0.04 ng/mL (<0.49) 08/16/17 03:00 B-Natriuretic Peptide 235 pg/mL (5-100) H 08/15/17 21:35 Total Protein 7.7 g/dL (6.7-8.2) 08/15/17 21:35 Albumin 3.9 g/dL (3.2-5.5) 08/15/17 21:35 Globulin 3.8 g/dL (2.1-4.2) 08/15/17 21:35 Albumin/Globulin Ratio 1.0 (1.0-2.2) 08/15/17 21:35 Lipase 33 U/L (22-51) 08/15/17 21:35 TSH 3.15 uIU/mL (0.34-5.60) 08/15/17 21:35 - Diagnostic Imaging Results Diagnostic Imaging Results: positive: Final report reviewed Diagnostic Imaging Results Comments: EXAM: CT HEAD EXAM DATE: 08/15/2017 09:53 PM. CLINICAL HISTORY: Stroke. COMPARISON: None. TECHNIQUE: Multiaxial CT images were obtained from the foramen magnum to the vertex. Reformats: Coronal. IV contrast: None. In accordance with CT protocol optimization, one or more of the following dose reduction techniques were utilized for this exam: automated exposure control, adjustment of mA and/or KV based on patient size, or use of iterative reconstructive technique. FINDINGS: Parenchyma: No intraparenchymal hemorrhage. No evidence of mass, midline shift, or CT findings of infarction. Burkett-white differentiation is distinct. Extraaxial Spaces: There is mild generalized volume loss. No subdural or epidural collections identified. There is relative hyperdensity of the right vertebral artery. Ventricles: Normal in size and position. Sinuses and Orbits: Imaged paranasal sinuses, orbits, and mastoids show no significant abnormality. Bones: No evidence of fracture or calvarial defect. Other: None. IMPRESSION: 1. There is no evidence of hemorrhage or mass effect. No clearly acute loss of burkett-white matter differentiation. 2. There is relative hyperdensity of the right upper vertebral artery (for example image 5 series 9 ). Differential considerations include thrombus, calcification, or artifact secondary to beam hardening. CTA could be used for further evaluation as indicated. EXAM: [id number] XR/[id number] ([id number]) EXAM: CHEST RADIOGRAPHY EXAM DATE: 08/15/2017 10:01 PM. CLINICAL HISTORY: Fever, hx of lung failure. COMPARISON: None. TECHNIQUE: 1 view. FINDINGS: Lungs/Pleura: No alveolar consolidation or pleural effusion seen. Pulmonary vascularity is upper normal. No pneumothorax. Small lung volumes. Mediastinum: Borderline cardiomegaly. Tortuous aorta. Other: Osteopenia. 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 IMPRESSION: 1. Small lung volumes with borderline heart size and pulmonary vascularity. EXAM: CHEST RADIOGRAPHY EXAM DATE: 08/15/2017 11:39 PM. CLINICAL HISTORY: Tube placement. COMPARISON: 08/15/2017, 2200 hrs.. TECHNIQUE: 1 view. FINDINGS: Lungs/Pleura: Small lung volumes. Hypoventilatory changes. Bilateral atelectasis. Pulmonary vascular congestion. No definite pleural effusion. No pneumothorax. Mediastinum: Mild cardiomegaly. Other: Endotracheal tube tip is in the right mainstem bronchus, about 1.7 cm beyond the navin. IMPRESSION: 1. ETT in the right mainstem bronchus, approximately 1.7 cm beyond the navin. 2. Small lung volumes with mild cardiomegaly and pulmonary vascular congestion. Bilateral atelectasis. EXAM: CHEST RADIOGRAPHY EXAM DATE: 08/16/2017 01:48 AM. CLINICAL HISTORY: ET tube placement. COMPARISON: 08/15/2017. TECHNIQUE: 1 view. FINDINGS: Lungs/Pleura: Bilateral atelectasis or infiltrate. Possible small left pleural effusion. No pneumothorax. Mediastinum: Rotated. Heart size is probably at least upper normal. Other: Endotracheal tube tip is at the navin or right mainstem bronchus ostium. IMPRESSION: 1. ETT at the navin or right mainstem bronchus ostium. 2. Rotated exam with borderline heart size and bilateral atelectasis or infiltrate. Possible small left effusion. - EKG Results EKG Interpreted Independently: Yes EKG Findings: Left bundle branch block Core Measures - Anticipated LOS I expect patient to be DC'd or transferred within 96 hours.: Yes - DVT/VTE - Prophylaxis VTE/DVT Device ordered at admit?: Yes
--- NOTE | 2017-08-15 23:59 | XRAY Preliminary Report ---
Exam: XR CHEST 1 VIEW X-RAY IMPRESSION: 1. ETT in the right mainstem bronchus, approximately 1.7 cm beyond the navin. 2. Small lung volumes with mild cardiomegaly and pulmonary vascular congestion. Bilateral atelectasis . RADIA The above findings were discussed with Dr. Gonzalez by Dr. Alfredo Amaral at 23:58 hrs on 08/15/17. SITE ID: [id number]
--- NOTE | 2017-08-15 23:59 | XRAY Report ---
EXAM: CHEST RADIOGRAPHY EXAM DATE: 08/15/2017 11:39 PM. CLINICAL HISTORY: Tube placement. COMPARISON: 08/15/2017, 2200 hrs.. TECHNIQUE: 1 view. FINDINGS: Lungs/Pleura: Small lung volumes. Hypoventilatory changes. Bilateral atelectasis. Pulmonary vascular congestion. No definite pleural effusion. No pneumothorax. Mediastinum: Mild cardiomegaly. Other: Endotracheal tube tip is in the right mainstem bronchus, about 1.7 cm beyond the navin. IMPRESSION: 1. ETT in the right mainstem bronchus, approximately 1.7 cm beyond the navin. 2. Small lung volumes with mild cardiomegaly and pulmonary vascular congestion. Bilateral atelectasis . RADIA The above findings were discussed with Dr. Gonzalez by Dr. Alfredo Amaral at 23:58 hrs on 08/15/17. Referring Provider Line: [phone] SITE ID: [id number]
[2017-08-16] MEDS ORDERED: IOPAMIDOL-300 100 ML VIAL ONE (00:02)
[2017-08-16] MEDS: PROPOFOL 1000 MG/100 ML 100 ML IV SCH ×3 (00:40→05:14)
[2017-08-16] MEDS ORDERED: levoFLOXacin 750 MG/150 ML 750 MG/150 ML BAG IV SCH ×2 (02:00)
[2017-08-16] MEDS ORDERED: PIPERACILLIN/TAZOBACTAM 3.375 GM in SODIUM CHLORIDE 0.9% MINIBAG 100 ML IV SCH ×5 (02:00→06:00)
[2017-08-16] MEDS ORDERED: SODIUM CHLORIDE FLUSH 0.9% 10 ML SYRINGE ONE (02:03)
[2017-08-16] MEDS: SODIUM CHLORIDE FLUSH 0.9% 10 ML SYRINGE IVP SCH ×2 (02:04→07:56)
--- NOTE | 2017-08-16 03:20 | XRAY Report ---
EXAM: CHEST RADIOGRAPHY EXAM DATE: 08/16/2017 01:48 AM. CLINICAL HISTORY: ET tube placement. COMPARISON: 08/15/2017. TECHNIQUE: 1 view. FINDINGS: Lungs/Pleura: Bilateral atelectasis or infiltrate. Possible small left pleural effusion. No pneumotho rax. Mediastinum: Rotated. Heart size is probably at least upper normal. Other: Endotracheal tube tip is at the navin or right mainstem bronchus ostium. IMPRESSION: 1. ETT at the navin or right mainstem bronchus ostium. 2. Rotated exam with borderline heart size and bilateral atelectasis or infiltrate. Possible small le ft effusion. RADIA The above findings were discussed with Dr. Jeffries by Dr. Alfredo Amaral at 03:18 hrs on 08/16/17. Referring Provider Line: [phone] SITE ID: [id number]
--- NOTE | 2017-08-16 03:20 | XRAY Preliminary Report ---
Exam: XR CHEST 1 VIEW X-RAY IMPRESSION: 1. ETT at the navin or right mainstem bronchus ostium. 2. Rotated exam with borderline heart size and bilateral atelectasis or infiltrate. Possible small le ft effusion. RADIA The above findings were discussed with Dr. Jeffries by Dr. Alfredo Amaral at 03:18 hrs on 08/16/17. SITE ID: [id number]
[2017-08-16 04:17] LABS: ABG BASE EXCESS -3.6 mmol/L (-2.0-3.0); ABG HCO3 20.4 mmol/L (22.0-26.0); ABG OXYGEN SATURATION 99 % (94-98); ABG PCO2 34 mmHg (34-45); ABG TCO2 21.4 MMOL/L (21.0-29.0); ALLEN TEST POSITIVE
[2017-08-16 04:19] LABS: ABG PO2 279 mmHg (80-100)
[2017-08-16] MEDS ORDERED: IOPAMIDOL-300 100 ML VIAL IVP ONE ×2 (04:48→05:03)
--- NOTE | 2017-08-16 05:33 | CT Preliminary Report ---
Exam: CT HEAD ANGIO IMPRESSION: 1. New diffuse edema throughout the bilateral cerebellar hemispheres with mass effect and narrowing o f the fourth ventricle compared to the brain CT from yesterday. 2. Suspect new 1.4 cm hemorrhage in the mesial left cerebellum. 3. No acute abnormality seen in the supratentorium. 4. Patent dural venous sinuses. 5. Very little contrast enhancement of the bilateral vertebral arteries, suspicious for occlusion on the right from dissection or thrombus. Very faint enhancement is seen in the congenital hypoplastic l eft vertebral artery. No definite thrombus is seen in the basilar or posterior cerebral arteries. RADIA The above findings were discussed with Dr. Jeffries by Dr. Dulce Salaazr at 05:26 hrs on 08/16/17. SITE ID: [id number]
--- NOTE | 2017-08-16 05:38 | CT Preliminary Report ---
Exam: CT NECK ANGIO IMPRESSION: 1. Very faint contrast enhancement in the right vertebral artery, suspicious for acute dissection or thrombus. 2. 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 3. No hemodynamically significant stenosis in the carotid arteries. 4. ET tube ends at the navin. It can be retracted 2-3 centimeter. RADIA SITE ID: [id number]
[2017-08-16 05:45] LABS: BASOPHILS % (AUTO) 0.1 %; EOSINOPHILS % (AUTO) 0.1 %; HGB - HEMOGLOBIN 13.3 g/dL (14.0-18.0); LYMPHOCYTES % (AUTO) 4.3 %; MEAN CORPUSCULAR HEMOGLOBIN 28.1 pg (27.0-31.0); MEAN CORPUSCULAR HGB CONC 33.3 g/dL (32.0-36.0); MEAN CORPUSCULAR VOLUME 84.5 fL (80.0-94.0); MEAN PLATELET VOLUME 8.2 fL (7.4-11.4); MONOCYTES % (AUTO) 11.1 %; NEUTROPHILS % (AUTO) 84.4 %; PLT - PLATELET COUNT 169 10^3/uL (130-450); RED BLOOD COUNT 4.74 10^6/uL (4.70-6.10); RED CELL DISTRIBUTION WIDTH 14.8 % (12.0-15.0)
--- NOTE | 2017-08-16 05:46 | CT Report ---
EXAM: CT ANGIOGRAM HEAD CT SCAN OF THE HEAD WITHOUT AND WITH CONTRAST EXAM DATE: 08/16/2017 05:07 AM CLINICAL HISTORY: Apnea. COMPARISON: None. TECHNIQUE: - CT Scan Head: Using a multidetector scanner, axial images were acquired from the foramen magnum to the skull vertex prior to and following contrast administration. - CT Angiogram: Using a multidetector scanner, high-resolution axial images were acquired from the sk ull base through vertex following rapid infusion of intravenous contrast. Reformats: Multiplanar MIP reformats were reconstructed. Nascet criteria used for stenosis measurement. IV Contrast: 80 mL of Isovue 300. In accordance with CT protocol optimization, one or more of the following dose reduction techniques w ere utilized for this exam: automated exposure control, adjustment of mA and/or KV based on patient s ize, or use of iterative reconstructive technique. FINDINGS: On the noncontrast brain CT images, there is new extensive low attenuation throughout the bilateral c erebellar hemispheres with obliteration of the cerebellar folia, consistent with edema. A 1.4 cm area of hyperdensity is noted in the mesial aspect of the left cerebellum (image 7, series 2), suspicious for a small parenchymal hemorrhage. Above the tentorium, the rizo-white matter differentiation is preserved. No hemorrhage is seen in the supratentorium. Mass effect is seen on the fourth ventricle. However, no supratentorial hydrocephalus has developed. After contrast administration, no abnormal brain parenchymal enhancement is appreciated. There is normal contrast opacification in the dural venous sinuses. The orbits, paranasal sinuses, and mastoid sinuses are unremarkable. Mild intracranial atherosclerosi s is noted. The temporomandibular joints are well-aligned. There is no acute calvarial fracture or sc alp hematoma. On the CT angiogram images of the head, the internal carotid arteries are patent from the superior ce rvical to the supraclinoid portions. Calcified plaque is present in the bilateral carotid siphons but no definite high-grade stenosis is seen. The left A1 segment is hypoplastic. The right A1 segment is widely patent. The A2 segments are fused forming an azygos anterior cerebral artery, a normal varian t. Focal stenosis of this distal azygos anterior cerebral artery is noted measuring 50-60% (image 50, series 10). The bilateral M1 and M2 segments are patent. Stenosis of the left M1 segment measures 30-40%. Very little contrast enhancement of the bilateral vertebral arteries is seen. The basilar artery is p atent without definite evidence of thrombus. The superior cerebellar and posterior cerebral arteries are patent. Posterior communicating arteries are not seen. IMPRESSION: 1. New diffuse edema throughout the bilateral cerebellar hemispheres with mass effect and narrowing o f the fourth ventricle compared to the brain CT from yesterday. 2. Suspect new 1.4 cm hemorrhage in the mesial left cerebellum. 3. No acute abnormality is seen in the supratentorium. 4. Patent dural venous sinuses. 5. Very little contrast enhancement of the bilateral vertebral arteries, suspicious for occlusion on the right from dissection or thrombus. Very faint enhancement is seen in the congenital hypoplastic l eft vertebral artery. No definite thrombus is seen in the basilar or posterior cerebral arteries. [facility] The above findings were discussed with Dr. Jeffries by Dr. Dulce Salazar at 05:26 hrs on 08/16/17. Referring Provider Line: [phone] SITE ID: [id number]
--- NOTE | 2017-08-16 05:46 | CT Report ---
EXAM: CT ANGIOGRAM NECK EXAM DATE: 08/16/2017 05:08 AM. CLINICAL HISTORY: Dysarthria and right-sided weakness. COMPARISON: None. TECHNIQUE: Routine axial helical imaging was performed from the skull base through the aortic arch. R econstructions: Routine multiplanar 3D MIP reconstructions. IV Contrast: Yes. Evaluation of arterial stenosis is based on a NASCET method of measurement. In accordance with CT protocol optimization, one or more of the following dose reduction techniques w ere utilized for this exam: automated exposure control, adjustment of mA and/or KV based on patient s ize, or use of iterative reconstructive technique. FINDINGS: Right Carotid: The common, internal, and external carotid arteries are patent. Mild calcified plaque is present at the carotid bifurcation without hemodynamically significant stenosis. Left Carotid: The common, internal, and external carotid arteries are patent. Mild calcified plaque i s present at the carotid bifurcation without hemodynamically significant stenosis. Vertebrals: Very little contrast opacification throughout the cervical right vertebral artery is pres ent. This could represent acute dissection or thrombus. 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 Other: A pleural effusion is suggested on the right. The patient is intubated with the ET tube ending at the navin. Moderate degenerative changes are present throughout the cervical spine. No other acu te abnormality is seen in the remaining soft tissues of the neck. IMPRESSION: 1. Very faint contrast enhancement in the right vertebral artery, suspicious for acute dissection or thrombus. 2. 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 3. No hemodynamically significant stenosis in the carotid arteries. 4. ET tube ends at the navin. It can be retracted 2-3 cm. [facility] Referring Provider Line: [phone] SITE ID: [id number]
[2017-08-16 05:49] LABS: ABNORMAL LYMPHS % (MANUAL) 0 %
[2017-08-16 05:51] LABS: ALBUMIN 3.6 g/dL (3.2-5.5); ALBUMIN/GLOBULIN RATIO 1.1 (1.0-2.2); BILIRUBIN,TOTAL 0.6 mg/dL (0.2-1.0); CALCIUM 8.7 mg/dL (8.5-10.3); CREATININE 1.6 mg/dL (0.6-1.2); MAGNESIUM 1.8 mg/dL (1.7-2.8); PHOSPHORUS 1.8 mg/dL (2.5-4.6); TOTAL PROTEIN 6.9 g/dL (6.7-8.2)
[2017-08-16 05:55] LABS: CHOLESTEROL 181 mg/dL; HDL CHOLESTEROL 30 mg/dL; LDL CHOLESTEROL,CALCULATED 121 mg/dL; VLDL CHOLESTEROL 30 mg/dL
--- NOTE | 2017-08-16 06:06 | PROVIDER PROGRESS NOTE ---
Presentation Specialist Note - Presentation Specialist Note Presentation Specialist Note: The patient's CT head angiogram shows a new diffuse edema throughout the bilateral cerebellar hemispheres with mass-effect and narrowing of the fourth ventricle compared to the brain CT from earlier. There is also suspicion of a new 1.4 cm hemorrhage in the mesial left cerebellum. There is no acute abnormality seen in the supratentorium. There is patent dural venous sinuses. There is very little contrast enhancement of the bilateral vertebral arteries, suspicious for occlusion on the right from dissection or thrombus. 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 No definite thrombus is seen in the basilar or posterior cerebral arteries. These findings were discussed with be by Dr. Salazar from [facility]. After being told of these findings I tried to contact the patient's to give her an update and see what degree of treatment she would want for the patient. Unfortunately I was unable to reach the at home. I did then speak with the on-call neurologist at [facility] Dr. Marshall who asked that I push the images of the CT angiogram through to him. He felt that this was too drastic of a change and did not make sense given the patient' s clinical presentation. He thought that such changes could occur from anoxic brain injury however not this acutely and not from the degree of hypoxia/anoxia that the patient had in the emergency department. He stated he would call me back once he looked over the CT angiogram and he did recommend an MRI as soon as possible. He will let me know if he would like the patient to be transferred to [facility]
[2017-08-16 06:15] LABS: BAND NEUTROPHILS % (MANUAL) 8 %; DIFFERENTIAL COMMENT MANUAL DIFFERENTIAL; LYMPHOCYTES # (MANUAL) 1.1 10^3/uL (1.5-3.5); LYMPHOCYTES % (MANUAL) 6 %; MONOCYTES # (MANUAL) 0.9 10^3/uL (0.0-1.0); NEUTROPHILS % (MANUAL) 81 %; PLATELET ESTIMATE, MANUAL NORMAL (130-450,000) (NORMAL); RBC MORPHOLOGY (MULTIPLE) NORMAL APPEARANCE (NORMAL)
[2017-08-16 06:41] LABS: BILIRUBIN,URINE NEGATIVE (NEGATIVE); CLARITY,URINE HAZY (CLEAR); GLUCOSE, URINE (UA) NEGATIVE (NEGATIVE); KETONES,URINE (UA) NEGATIVE (NEGATIVE); LEUKOCYTE ESTERASE, URINE NEGATIVE (NEGATIVE); NITRITE,URINE NEGATIVE (NEGATIVE); OCCULT BLOOD,URINE TRACE-LYSE (NEGATIVE); PH,URINE 5.5 PH (5.0-7.5); PROTEIN,URINE 30 mg/dL (NEGATIVE); UROBILINOGEN,URINE 0.2 (NORMAL) E.U./dL (NORMAL)
[2017-08-16 06:48] LABS: AMORPHOUS SEDIMENT,UR Moderate /LPF; BACTERIA,URINE Few /HPF (None Seen); RBC,URINE 0-5 /HPF (0-5); SQUAMOUS EPITHELIAL CELL,UR RARE Squamous (<= Few)
--- NOTE | 2017-08-16 06:56 | Discharge Plan ---
Discharge Plan Disposition: 02 Transfer Acute Care Hosp Condition: Critical No Smoking: If you smoke, Please STOP! Call for help.
--- NOTE | 2017-08-16 06:59 | DISCHARGE SUMMARY ---
Discharge Summary Admit Date: 08/15/17 Discharge Date: 08/16/17 Discharging Provider: Kalen Jeffries MD Primary Care Provider: Deb Hilliard Code Status: Do Not Attempt Resuscitation Condition at Discharge: Critical Discharge Disposition: 02 Transfer Acute Care Hosp Discharge Facility Name: [facility] Accepting MD Erik Davidson ( Neurology) - DIAGNOSES Admission Diagnoses: 1. Acute respiratory failure with hypoxia 2. Cardiac arrest due to respiratory disorder 3. Aspiration and 2 respiratory tract 4. Cerebrovascular accident 5. Atrial fibrillation 6. Hypertension 7. Hypokalemia Discharge Diagnoses with Status of Each Condition: 1. Intracranial hemorrhage: Critical 2. Acute respiratory failure with hypoxia: Critical 3. Cardiac arrest due to respiratory disorder: Critical 4. Aspiration into respiratory tract: Critical 5. Cerebrovascular accident: Critical 6. Atrial fibrillation: Critical 7. Hypertension: Critical 8. Hypokalemia: Critical - HPI History of Present Illness: Patient is a 81-year-old gentleman with a past medical history significant for atrial fibrillation off Coumadin for the last few months, hyperlipidemia, CKD stage 3 hypertension, gout and dementia who presented to the emergency department with a chief complaint of dysarthria and right-sided weakness. When I saw the patient he was intubated and sedated therefore the history was obtained from the patient's . According to the patient's the patient was in his normal state of health until this morning. She states that throughout the day today he has been having intermittent vertigo. She states that he was complaining of feeling very dizzy and as though the room was spinning around him this afternoon but then appear to improve and vacuumed the floor. She states that he had another episode of vertigo later in the evening before dinner but that resolved. She states that later in the evening he took his blood pressure medications and prior to going to bed he began having severe symptoms. She states that symptoms were so bad he could not even stand up and then she states that he leaned his head back in the chair and she states that he began slurring his words and she noticed that he had weakness on the right side. She states that she went and called 911 when she got back to him he began vomiting and had several episodes of vomiting prior to the arrival of EMS. By the time EMS arrived they noted the patient did have some slight right sided facial droop and right sided weakness. They stated that he was not moving his right upper extremity. The patient's states that the patient had no recent fevers, chills, chest pain, shortness of air, orthopnea, PND, abdominal pain or constipation. On arrival to the emergency department the patient was afebrile and hypertensive but the remainder of his vital signs were within normal limits. The emergency room physician noted that the patient did have a slight right facial droop and continued to have dysarthria and initially was not using his right arm however when he was asked to use the right arm he did follow commands and appeared to have normal strength. The patient was sent for CT of his head which showed a relative hyperdensity in the right upper vertebral artery with a differential consideration of thrombus, calcification or artifact secondary to beam hardening. Tele neurology was activated and the patient was assessed by a neurologist from [facility]. He was found to have a NIH stroke scale score of 2. They determined he was not a candidate for TPA and recommended admission to the hospital for further imaging including echocardiogram, CT angiogram of the head and neck and MRI. While in the emergency room the patient continued to have nausea and prior to being admitted for possible stroke the patient had an episode of emesis and appears to have aspirated. The patient became hypoxic with oxygen saturation that dropped to as low as 30% and began to have bradycardia. The emergency room physician noted this on the monitor and immediately rushed to the patient' s room. When the emergency room physician arrived in the patient's room he found him to be cyanotic lying on his side. The emergency room physician immediately checked for a pulse which was absent and began chest compressions. The patient only received chest compressions for no more than 2 minutes. When on initial pulse check he was found to have a good pulse but was bradycardic. The patient was given atropine and heart rate improved. The patient required bagging to maintain a good oxygen saturation and eventually was intubated. Prior to intubation the patient was found to have stomach content in his oropharynx which had to be suctioned to clear the path for the endotracheal tube. The patient had a anoxic cardiac arrest but recovered rapidly and was admitted to the intensive care unit for acute respiratory failure with hypoxia and likely posterior stroke. (1) Acute respiratory failure with hypoxia Conclusion/Plan: The patient had acute respiratory failure with hypoxia leading to cardiac arrest requiring resuscitation with chest compressions and atropine. The patient also required intubation. It appears the patient's respiratory failure and subsequent cardiac arrest was secondary to aspiration. There was stomach contents found in the patient's airway prior to intubation and also content was suctioned out post intubation. The patient was likely unable to protect his airway secondary to his stroke and likely had the nausea and vomiting due to a posterior stroke. Plan: Patient will be continued on the ventilator and we will try to wean the patient down slowly The patient's chest x-ray does not show active pneumonia however given his aspiration patient will likely develop pneumonia over the course of the next 24 hours therefore the patient is being placed on IV antibiotics with Zosyn and Levaquin (2) Cardiac arrest due to respiratory disorder Conclusion/Plan: The patient did have cardiac arrest after episode of aspiration and respiratory failure with hypoxia. The patient's oxygen saturation was down in the 30s and the patient was cyanotic. When found the patient had no pulse and chest compressions were started. Patient underwent chest compressions for no more than 2 minutes and he had return of spontaneous circulation however was bradycardic and required atropine. The patient has now been stabilized after intubation and sedation. The patient likely had aspiration secondary to stroke The patient's made it clear that she wants him to be a DO NOT RESUSCITATE status and would not want him to have any further chest compressions but does want him to continue to be treated if we see opportunity for reversibility of his condition. (3) Aspiration into respiratory tract Conclusion/Plan: The patient appears to have aspirated as stated above. This led to cardiac arrest and acute respiratory failure with hypoxia and the patient is now intubated. The patient does not have any evidence of pneumonia on his chest x- ray however given that this patient just aspirated it is likely he will not develop evidence of aspiration or of pneumonia for the next 24 hours. At this time given this patient's respiratory failure the patient will be treated for aspiration pneumonia with Zosyn and Levaquin. We will continue to monitor him with daily x-rays. Qualifiers: Encounter type: initial encounter Qualified Code(s): T17.908A - Unspecified foreign body in respiratory tract, part unspecified causing other injury, initial encounter (4) Cerebrovascular accident (CVA) Conclusion/Plan: The patient appears to have likely had a posterior stroke. Given his presenting symptoms of vertigo, nausea, vomiting and slight right-sided weakness. The patient's CT scan of his head did show a relative hyperdensity in the right upper vertebral artery which could be a thrombus and causing a posterior stroke. Plan: Given the patient's acute decline and aspiration with inability to protect his airway we will repeat the patient's CT head and also get a CT angiogram of his head and neck. Once the patient is stabilized and extubated we will also need to get an MRI. The patient will undergo an echo We will place the patient on aspirin and Lipitor Once patient is stabilized we will need to discuss restarting anticoagulation We will allow for permissive hypertension Patient will be monitored on telemetry and undergo neuro checks We will order a PT consultation once the patient is extubated and stabilized. Qualifiers: CVA mechanism: unspecified Qualified Code(s): I63.9 - Cerebral infarction, unspecified (5) Atrial fibrillation Conclusion/Plan: The patient was previously on Coumadin for his atrial fibrillation however stopped a few months ago when he stated that it made him feel badly and he was concerned about possibility of bleeding. The patient was adamant at that time that he would not take Coumadin anymore. The patient does have a chads 2 score of 2 and now that he has had a stroke his chads 2 score would be for. Currently the patient's rate is controlled Plan: We will get an echocardiogram If patient does recover and is stabilized then we will need to discuss starting the patient back on anticoagulation given his stroke and the fact that he is high risk for another stroke. Patient will be continued on metoprolol and digoxin for rate control. Patient will be on telemetry Qualifiers: Atrial fibrillation type: chronic Qualified Code(s): I48.2 - Chronic atrial fibrillation (6) Hypertension Conclusion/Plan: The patient has history of hypertension however given the likelihood of an acute stroke the patient will be allowed permissive hypertension and will hold his antihypertensive medications for now Qualifiers: Hypertension type: essential hypertension Qualified Code(s): I10 - Essential (primary) hypertension (7) Hypokalemia Conclusion/Plan: On presentation the patient does have hypokalemia with a potassium of 3.3. This is likely secondary to the patient's nausea and vomiting. Patient will be placed on electrolyte protocol and potassium will be replaced - HOSPITAL COURSE Hospital Course: The patient's CT head angiogram shows a new diffuse edema throughout the bilateral cerebellar hemispheres with mass-effect and narrowing of the fourth ventricle compared to the brain CT from earlier. There is also suspicion of a new 1.4 cm hemorrhage in the mesial left cerebellum. There is no acute abnormality seen in the supratentorium. There is patent dural venous sinuses. There is very little contrast enhancement of the bilateral vertebral arteries, suspicious for occlusion on the right from dissection or thrombus. 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 No definite thrombus is seen in the basilar or posterior cerebral arteries. These findings were discussed with be by Dr. Salazar from [facility]. After being told of these findings I tried to contact the patient's to give her an update and see what degree of treatment she would want for the patient. Unfortunately I was unable to reach the at home. I did then speak with the on-call neurologist at [facility] Dr. Marshall who asked that I push the images of the CT angiogram through to him. He felt that this was too drastic of a change and did not make sense given the patient' s clinical presentation. He thought that such changes could occur from anoxic brain injury however not this acutely and not from the degree of hypoxia/anoxia that the patient had in the emergency department. He stated he would call me back once he looked over the CT angiogram and he did recommend an MRI as soon as possible. He will let me know if he would like the patient to be transferred to [facility] Patient accepted by Dr Erik Davidson Neurology at [facility]. Transferred by helicopter. - ALLERGIES Allergies/Adverse Reactions: Allergies Allergy/AdvReac Type Severity Reaction Status Date / Time No Known Drug Allergies Allergy Verified 07/03/17 14:21 - MEDICATIONS Home Medications: Ambulatory Orders Medication Instructions Recorded Confirmed Cimetidine 400 mg PO DAILY 06/01/17 06/01/17 Colchicine [Colcrys] 0.06 mg PO BID 06/01/17 06/01/17 Digoxin 0.125 mg PO DAILY 06/01/17 06/01/17 Metoprolol Tartrate 25 mg PO BID 06/01/17 06/01/17 Triamterene/Hydrochlorothiazid 1 tab PO DAILY 06/01/17 06/01/17 [Triamterene-Hctz 37.5-25 mg Cp] Naproxen [Naprosyn] 500 mg PO BID PRN #20 tablet 07/03/17 ALPRAZolam [Alprazolam] 0.5 mg PO 08/15/17 - PHYSICAL EXAM AT DISCHARGE General Appearance: positive: Other (Intubated and sedated ) Eyes Bilateral: positive: Normal inspection, PERRL, EOMI, No lid inflammation, Conjunctivae nml, No scleral icterus ENT: positive: ENT inspection nml, Pharynx nml, Dry mucous membranes. negative : Purulent nasal drainage, Pharyngeal erythema, Oral lesions Neck: positive: Nml inspection, Thyroid nml, No JVD, Trachea midline. negative : Thyromegaly, Lymphadenopathy (R), Lymphadenopathy (L), Carotid bruit, Tracheal deviation Respiratory: positive: Rhonchi (Right lung), Other (Intubated) Cardiovascular: positive: No murmur, No gallop, Irregularly irregular Peripheral Pulses: positive: 2+ Abdomen: positive: Non-tender, No organomegaly, Nml bowel sounds, No distention. negative: Guarding, Rebound, Hepatomegaly, Splenomegaly Back: positive: Nml inspection. negative: CVA tenderness (R), CVA tenderness (L ) Skin: positive: No rash, Warm. negative: Cyanosis, Diaphoresis, Pallor Extremities: positive: Non-tender, Nml appearance, No pedal edema Neurologic/Psychiatric: positive: Other (Sedated ) - LABS Result Diagrams: 08/16/17 05:15 08/16/17 05:15 Other Lab Results: Laboratory Results WBC 18.0 x10^3/uL (4.8-10.8) H 08/16/17 05:15 RBC 4.74 10^6/uL (4.70-6.10) 08/16/17 05:15 Hgb 13.3 g/dL (14.0-18.0) L 08/16/17 05:15 Hct 40.0 % (42.0-52.0) L 08/16/17 05:15 MCV 84.5 fL (80.0-94.0) 08/16/17 05:15 MCH 28.1 pg (27.0-31.0) 08/16/17 05:15 MCHC 33.3 g/dL (32.0-36.0) 08/16/17 05:15 RDW 14.8 % (12.0-15.0) 08/16/17 05:15 Plt Count 169 10^3/uL (130-450) 08/16/17 05:15 MPV 8.2 fL (7.4-11.4) 08/16/17 05:15 Neut # Not Reportable 08/16/17 05:15 Lymph # Not Reportable 08/16/17 05:15 Edwards # Not Reportable 08/16/17 05:15 Eos # Not Reportable 08/16/17 05:15 Baso # Not Reportable 08/16/17 05:15 Absolute Nucleated RBC Not Reportable 08/16/17 05:15 Total Counted 100 08/16/17 05:15 Band Neuts % (Manual) 8 % (0-10) 08/16/17 05:15 Abnorm Lymph % (Manual) 0 % 08/16/17 05:15 Nucleated RBC % Not Reportable 08/16/17 05:15 Neutrophils # (Manual) 16.0 10^3/uL (1.5-6.6) H 08/16/17 05:15 Lymphocytes # (Manual) 1.1 10^3/uL (1.5-3.5) L 08/16/17 05:15 Monocytes # (Manual) 0.9 10^3/uL (0.0-1.0) 08/16/17 05:15 Eosinophils # (Manual) 0.0 10^3/uL (0-0.7) 08/16/17 05:15 Basophils # (Manual) 0.0 10^3/uL (0-0.1) 08/16/17 05:15 Differential Comment MANUAL DIFFERENTIAL 08/16/17 05:15 Platelet Estimate NORMAL (130-450,000) (NORMAL) 08/16/17 05:15 RBC Morph Micro Appear NORMAL APPEARANCE (NORMAL) 08/16/17 05:15 PT 12.4 secs (9.9-12.6) 08/15/17 22:09 INR 1.1 (0.8-1.2) 08/15/17 22:09 APTT 26.2 secs (24.9-33.3) 08/15/17 22:09 Bld Gas Analysis Time 0330 08/16/17 03:20 Sample Site RIGHT RADIAL 08/16/17 03:20 ABG pH 7.40 (7.35-7.45) 08/16/17 03:20 ABG pCO2 34 mmHg (34-45) 08/16/17 03:20 ABG pO2 279 mmHg (80-100) H* 08/16/17 03:20 ABG HCO3 20.4 mmol/L (22.0-26.0) L 08/16/17 03:20 ABG Total CO2 21.4 MMOL/L (21.0-29.0) 08/16/17 03:20 ABG O2 Saturation 99 % (94-98) H 08/16/17 03:20 ABG Oximetry Spot Check 100 % 08/16/17 03:20 ABG Base Excess -3.6 mmol/L (-2.0-3.0) L 08/16/17 03:20 Americo Test POSITIVE 08/16/17 03:20 Respiration Rate 16 b/min 08/16/17 03:20 O2 Delivery Device VENTILATOR 08/16/17 03:20 Vent Mode SIMV 08/16/17 03:20 FiO2 100.00 08/16/17 03:20 Tidal Volume 600 mL 08/16/17 03:20 PEEP 5 cmH2O 08/16/17 03:20 Pressure Support Vent 10 cmH2O 08/16/17 03:20 Sodium 135 mmol/L (135-145) 08/16/17 05:15 Potassium 3.6 mmol/L (3.5-5.0) 08/16/17 05:15 Chloride 103 mmol/L (101-111) 08/16/17 05:15 Carbon Dioxide 22 mmol/L (21-32) 08/16/17 05:15 Anion Gap 10.0 (6-13) 08/16/17 05:15 BUN 29 mg/dL (6-20) H 08/16/17 05:15 Creatinine 1.6 mg/dL (0.6-1.2) H 08/16/17 05:15 Estimated GFR (MDRD) 42 (>89) L 08/16/17 05:15 Glucose 156 mg/dL (70-100) H 08/16/17 05:15 Lactic Acid 2.0 mmol/L (0.5-2.2) 08/15/17 22:09 Calcium 8.7 mg/dL (8.5-10.3) 08/16/17 05:15 Phosphorus 1.8 mg/dL (2.5-4.6) L 08/16/17 05:15 Magnesium 1.8 mg/dL (1.7-2.8) 08/16/17 05:15 Total Bilirubin 0.6 mg/dL (0.2-1.0) 08/16/17 05:15 AST 52 IU/L (10-42) H 08/16/17 05:15 ALT 44 IU/L (10-60) 08/16/17 05:15 Alkaline Phosphatase 61 IU/L (42-121) 08/16/17 05:15 Troponin I 0.04 ng/mL (<0.49) 08/16/17 03:00 B-Natriuretic Peptide 235 pg/mL (5-100) H 08/15/17 21:35 Total Protein 6.9 g/dL (6.7-8.2) 08/16/17 05:15 Albumin 3.6 g/dL (3.2-5.5) 08/16/17 05:15 Globulin 3.3 g/dL (2.1-4.2) 08/16/17 05:15 Albumin/Globulin Ratio 1.1 (1.0-2.2) 08/16/17 05:15 Triglycerides 150 mg/dL (-149) H 08/16/17 05:15 Cholesterol 181 mg/dL (-199) 08/16/17 05:15 LDL Cholesterol, Calc 121 mg/dL (-129) 08/16/17 05:15 VLDL Cholesterol 30 mg/dL 08/16/17 05:15 HDL Cholesterol 30 mg/dL (60-) L 08/16/17 05:15 LDL/HDL Ratio 4.0 (<3.6) 08/16/17 05:15 Cholesterol/HDL Ratio 6.0 (<5.0) 08/16/17 05:15 Lipase 33 U/L (22-51) 08/15/17 21:35 TSH 3.15 uIU/mL (0.34-5.60) 08/15/17 21:35 Urine Color YELLOW 08/16/17 03:22 Urine Clarity HAZY (CLEAR) 08/16/17 03:22 Urine pH 5.5 PH (5.0-7.5) 08/16/17 03:22 Ur Specific [place] >=1.030 (1.002-1.030) H 08/16/17 03:22 Urine Protein 30 mg/dL (NEGATIVE) H 08/16/17 03:22 Urine Glucose (UA) NEGATIVE mg/dL (NEGATIVE) 08/16/17 03:22 Urine Ketones NEGATIVE mg/dL (NEGATIVE) 08/16/17 03:22 Urine Occult Blood TRACE-LYSE (NEGATIVE) 08/16/17 03:22 Urine Nitrite NEGATIVE (NEGATIVE) 08/16/17 03:22 Urine Bilirubin NEGATIVE (NEGATIVE) 08/16/17 03:22 Urine Urobilinogen 0.2 (NORMAL) E.U./dL (NORMAL) 08/16/17 03:22 Ur Leukocyte Esterase NEGATIVE (NEGATIVE) 08/16/17 03:22 Urine RBC 0-5 /HPF (0-5) 08/16/17 03:22 Urine WBC 0-3 /HPF (0-3) 08/16/17 03:22 Ur Squamous Epith Cells RARE Squamous (<= Few) 08/16/17 03:22 Amorphous Sediment Moderate /LPF 08/16/17 03:22 Urine Bacteria Few /HPF (None Seen) 08/16/17 03:22 Ur Microscopic Review INDICATED 08/16/17 03:22 Urine Culture Comments NOT INDICATED 08/16/17 03:22 - DIAGNOSTIC IMAGING Diagnostic Imaging Results: Final report reviewed Diagnostic Imaging Results Comments: EXAM: CT HEAD EXAM DATE: 08/15/2017 09:53 PM. CLINICAL HISTORY: Stroke. COMPARISON: None. TECHNIQUE: Multiaxial CT images were obtained from the foramen magnum to the vertex. Reformats: Coronal. IV contrast: None. In accordance with CT protocol optimization, one or more of the following dose reduction techniques were utilized for this exam: automated exposure control, adjustment of mA and/or KV based on patient size, or use of iterative reconstructive technique. FINDINGS: Parenchyma: No intraparenchymal hemorrhage. No evidence of mass, midline shift, or CT findings of infarction. Burkett-white differentiation is distinct. Extraaxial Spaces: There is mild generalized volume loss. No subdural or epidural collections identified. There is relative hyperdensity of the right vertebral artery. Ventricles: Normal in size and position. Sinuses and Orbits: Imaged paranasal sinuses, orbits, and mastoids show no significant abnormality. Bones: No evidence of fracture or calvarial defect. Other: None. IMPRESSION: 1. There is no evidence of hemorrhage or mass effect. No clearly acute loss of burkett-white matter differentiation. 2. There is relative hyperdensity of the right upper vertebral artery (for example image 5 series 9 ). Differential considerations include thrombus, calcification, or artifact secondary to beam hardening. CTA could be used for further evaluation as indicated. EXAM: [id number] XR/[id number] ([id number]) EXAM: CHEST RADIOGRAPHY EXAM DATE: 08/15/2017 10:01 PM. CLINICAL HISTORY: Fever, hx of lung failure. COMPARISON: None. TECHNIQUE: 1 view. FINDINGS: Lungs/Pleura: No alveolar consolidation or pleural effusion seen. Pulmonary vascularity is upper normal. No pneumothorax. Small lung volumes. Mediastinum: Borderline cardiomegaly. Tortuous aorta. Other: Osteopenia. 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 IMPRESSION: 1. Small lung volumes with borderline heart size and pulmonary vascularity. EXAM: CHEST RADIOGRAPHY EXAM DATE: 08/15/2017 11:39 PM. CLINICAL HISTORY: Tube placement. COMPARISON: 08/15/2017, 2200 hrs.. TECHNIQUE: 1 view. FINDINGS: Lungs/Pleura: Small lung volumes. Hypoventilatory changes. Bilateral atelectasis. Pulmonary vascular congestion. No definite pleural effusion. No pneumothorax. Mediastinum: Mild cardiomegaly. Other: Endotracheal tube tip is in the right mainstem bronchus, about 1.7 cm beyond the navin. IMPRESSION: 1. ETT in the right mainstem bronchus, approximately 1.7 cm beyond the navin. 2. Small lung volumes with mild cardiomegaly and pulmonary vascular congestion. Bilateral atelectasis. EXAM: CHEST RADIOGRAPHY EXAM DATE: 08/16/2017 01:48 AM. CLINICAL HISTORY: ET tube placement. COMPARISON: 08/15/2017. TECHNIQUE: 1 view. FINDINGS: Lungs/Pleura: Bilateral atelectasis or infiltrate. Possible small left pleural effusion. No pneumothorax. Mediastinum: Rotated. Heart size is probably at least upper normal. Other: Endotracheal tube tip is at the navin or right mainstem bronchus ostium. IMPRESSION: 1. ETT at the navin or right mainstem bronchus ostium. 2. Rotated exam with borderline heart size and bilateral atelectasis or infiltrate. Possible small left effusion. EXAM: [id number] CT/NECKANG ([id number]) EXAM: CT ANGIOGRAM NECK EXAM DATE: 08/16/2017 05:08 AM. CLINICAL HISTORY: Dysarthria and right-sided weakness. COMPARISON: None. TECHNIQUE: Routine axial helical imaging was performed from the skull base through the aortic arch. Reconstructions: Routine multiplanar 3D MIP reconstructions. IV Contrast: Yes. Evaluation of arterial stenosis is based on a NASCET method of measurement. In accordance with CT protocol optimization, one or more of the following dose reduction techniques were utilized for this exam: automated exposure control, adjustment of mA and/or KV based on patient size, or use of iterative reconstructive technique. FINDINGS: Right Carotid: The common, internal, and external carotid arteries are patent. Mild calcified plaque is present at the carotid bifurcation without hemodynamically significant stenosis. Left Carotid: The common, internal, and external carotid arteries are patent. Mild calcified plaque is present at the carotid bifurcation without hemodynamically significant stenosis. Vertebrals: Very little contrast opacification throughout the cervical right vertebral artery is present. This could represent acute dissection or thrombus. 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 Other: A pleural effusion is suggested on the right. The patient is intubated with the ET tube ending at the navin. Moderate degenerative changes are present throughout the cervical spine. No other acute abnormality is seen in the remaining soft tissues of the neck. IMPRESSION: 1. Very faint contrast enhancement in the right vertebral artery, suspicious for acute dissection or thrombus. 2. 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 3. No hemodynamically significant stenosis in the carotid arteries. 4. ET tube ends at the navin. It can be retracted 2-3 cm. EXAM: [id number] CT/HEADANG ([id number]) EXAM: CT ANGIOGRAM HEAD CT SCAN OF THE HEAD WITHOUT AND WITH CONTRAST EXAM DATE: 08/16/2017 05:07 AM CLINICAL HISTORY: Apnea. COMPARISON: None. TECHNIQUE: - CT Scan Head: Using a multidetector scanner, axial images were acquired from the foramen magnum to the skull vertex prior to and following contrast administration. - CT Angiogram: Using a multidetector scanner, high-resolution axial images were acquired from the skull base through vertex following rapid infusion of intravenous contrast. Reformats: Multiplanar MIP reformats were reconstructed. Nascet criteria used for stenosis measurement. IV Contrast: 80 mL of Isovue 300. In accordance with CT protocol optimization, one or more of the following dose reduction techniques were utilized for this exam: automated exposure control, adjustment of mA and/or KV based on patient size, or use of iterative reconstructive technique. FINDINGS: On the noncontrast brain CT images, there is new extensive low attenuation throughout the bilateral cerebellar hemispheres with obliteration of the cerebellar folia, consistent with edema. A 1.4 cm area of hyperdensity is noted in the mesial aspect of the left cerebellum (image 7, series 2), suspicious for a small parenchymal hemorrhage. Above the tentorium, the burkett-white matter differentiation is preserved. No hemorrhage is seen in the supratentorium. Mass effect is seen on the fourth ventricle. However, no supratentorial hydrocephalus has developed. After contrast administration, no abnormal brain parenchymal enhancement is appreciated. There is normal contrast opacification in the dural venous sinuses. The orbits, paranasal sinuses, and mastoid sinuses are unremarkable. Mild intracranial atherosclerosis is noted. The temporomandibular joints are well-aligned. There is no acute calvarial fracture or scalp hematoma. On the CT angiogram images of the head, the internal carotid arteries are patent from the superior cervical to the supraclinoid portions. Calcified plaque is present in the bilateral carotid siphons but no definite high-grade stenosis is seen. The left A1 segment is hypoplastic. The right A1 segment is widely patent. The A2 segments are fused forming an azygos anterior cerebral artery, a normal variant. 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 The bilateral M1 and M2 segments are patent. Stenosis of the left M1 segment measures 30-40%. Very little contrast enhancement of the bilateral vertebral arteries is seen. The basilar artery is patent without definite evidence of thrombus. The superior cerebellar and posterior cerebral arteries are patent. Posterior communicating arteries are not seen. IMPRESSION: 1. New diffuse edema throughout the bilateral cerebellar hemispheres with mass effect and narrowing of the fourth ventricle compared to the brain CT from yesterday. 2. Suspect new 1.4 cm hemorrhage in the mesial left cerebellum. 3. No acute abnormality is seen in the supratentorium. 4. Patent dural venous sinuses. 5. Very little contrast enhancement of the bilateral vertebral arteries, suspicious for occlusion on the right from dissection or thrombus. 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 No definite thrombus is seen in the basilar or posterior cerebral arteries. - FOLLOW UP Follow Up: Patient transferred to [facility]. - TIME SPENT Time Spent in Discharge (Minutes): 55
--- NOTE | 2017-08-16 07:39 | XRAY Report ---
EXAM: CHEST RADIOGRAPHY EXAM DATE: 08/16/2017 06:20 AM. CLINICAL HISTORY: Intubated and aspiration. COMPARISON: Frontal chest earlier in the day. TECHNIQUE: 1 view. FINDINGS: Endotracheal tube, tip 4 cm above the navin. Left upper lung atelectasis has improved. No focal consolidation in other regards. No pneumothorax or pleural effusion. Mediastinum appears unchanged. IMPRESSION: Appropriate appearance of endotracheal tube. Improved left atelectasis. [facility] Referring Provider Line: [phone] SITE ID: [id number]
[2017-08-16] MEDS ORDERED: ASPIRIN 325 MG TABLET PO SCH (08:00)
[2017-08-16 08:09] VITALS: BP 115/84
[2017-08-16] MEDS ORDERED: FAMOTIDINE 20 MG TABLET PO SCH ×2 (09:00)
[2017-08-16] MEDS ORDERED: TRIAMT/HCTZ 37.5 MG/25 MG CAPSULE PO SCH (09:00)
[2017-08-16] MEDS ORDERED: METOPROLOL TARTRATE 25 MG TABLET PO SCH (09:00)
[2017-08-16] MEDS ORDERED: DIGOXIN 125 MCG TABLET PO SCH (09:00)
[2017-08-16] MEDS ORDERED: CIMETIDINE 400 MG PO SCH (09:00)
[2017-08-16] MEDS ORDERED: POLYETHYLENE GLYCOL 3350 17 GM PACKET PO SCH (09:00)
[2017-08-16] MEDS ORDERED: CHLORHEXIDINE GLUCONATE 15 ML UDC PO SCH (09:00)
[2017-08-16] MEDS ORDERED: ATORVASTATIN 40 MG TABLET PO SCH (21:00)
== END 2017-08-16 09:00 | disposition short-term general hospital (02) | DRG 64 ==
LOC: EDUNIT# → EDBD → ED 21:30 → ICU 23:13
PROVIDERS: ADMIT Internal Medicine; ATTEND Internal Medicine
PROC: 5A1935Z Respiratory Ventilation, Less than 24 Consecutive Hours (ICD-10-PCS; principal; 2017-08-15)
DX: I63.9 Cerebral infarction, unspecified (principal); I63.211 Cerebral infarction due to unspecified occlusion or stenosis of right vertebral artery; I48.91 Unspecified atrial fibrillation; J96.01 Acute respiratory failure with hypoxia; I46.8 Cardiac arrest due to other underlying condition; R29.703 NIHSS score 3; I61.4 Nontraumatic intracerebral hemorrhage in cerebellum; Q28.3 Other malformations of cerebral vessels; G83.21 Monoplegia of upper limb affecting right dominant side; R47.1 Dysarthria and anarthria; R29.810 Facial weakness; T17.920A Food in respiratory tract, part unspecified causing asphyxiation, initial encounter; I48.2 Chronic atrial fibrillation; I12.9 Hypertensive chronic kidney disease with stage 1 through stage 4 chronic kidney disease, or unspecified chronic kidney disease; N18.3 Chronic kidney disease, stage 3 (moderate); E87.6 Hypokalemia; T45.516A Underdosing of anticoagulants, initial encounter; E78.5 Hyperlipidemia, unspecified; F03.90 Unspecified dementia, unspecified severity, without behavioral disturbance, psychotic disturbance, mood disturbance, and anxiety; R29.702 NIHSS score 2; M10.9 Gout, unspecified; K21.9 Gastro-esophageal reflux disease without esophagitis; M19.90 Unspecified osteoarthritis, unspecified site; Z66 Do not resuscitate; Z79.899 Other long term (current) drug therapy; Z87.891 Personal history of nicotine dependence
CPT/HCPCS: 31500; 36415; 36600; 70450; 70496; 70498; 71045; 80053; 80061; 81001; 81003; 82803; 83605; 83690; 83721; 83735; 83880; 84100; 84443; 84484; 85025; 85610; 85730; 87086; 87150; 92950; 93005; 94002; 94003; 96374; 96375; 99285; 99291